=== PATIENT | female | born 1950 | race Caucasian/White ===

== ENCOUNTER 2021-11-23 22:17 | Emergency (ER) | payer MEDICARE ==
--- NOTE | 2021-11-23 22:39 | ERPHSYRPT ---
- History of Present Illness Time Seen by Provider: 11/23/21 22:38 Historian: patient, family Exam Limitations: no limitations Physician History: This is a 71-year-old white female patient of Dr. Briggs who presents with nausea and vomiting that began at 2 AM this morning. He is not able to hold any liquids down. She also felt very dizzy. She was not sure which happened first. She has had issues in the past with similar symptoms and her potassium was low. She also complains of bilateral lower quadrant abdominal pain. She is unsure if this is secondary to the multiple times she has vomited. She has had diarrhea as well. She does not have severe abdominal pain. She has no chest pain. She has had no fevers. She has no shortness of breath. No other ind ividuals in the family or friends have similar symptoms. She has no known exposures to individuals with diagnosis of flus. Timing/Duration: today Activities at Onset: none Abdominal Pain Onset Location: RLQ, LLQ Pain Radiation: no radiation Severity of Pain-Max: mild Severity of Pain-Current: mild Modifying Factors: Improves With: vomiting Associated Symptoms: diarrhea, loss of appetite, nausea, vomiting Previous symptoms: same symptoms as today (In the distant past related to a low potassium) Allergies/Adverse Reactions: codeine Allergy (Mild, Verified 11/23/21 22:32) Nausea and Vomiting Home Medications: Metoprolol Tartrate 25 mg [Lopressor 25MG Tab] 50 mg PO DAILY 04/16/12 [History] Levothyroxine Sodium [Levothyroxine] 50 mcg PO 11/23/21 [History] Hx Tetanus, Diphtheria Vaccination/Date Given: No Hx Influenza Vaccination/Date Given: Yes (2011) Hx Pneumococcal Vaccination/Date Given: No Travel Risk - International Travel Have you traveled outside of the country in past 3 weeks: No - Coronavirus Screening Are you exhibiting any of the following symptoms?: Yes Symptoms: Vomiting/Diarrhea Close contact with a COVID-19 positive Pt in past 14-21 Days: No - Review of Systems Constitutional: Weakness Eyes: No Symptoms Ears, Nose, & Throat: No Symptoms Respiratory: No Symptoms Cardiac: No Symptoms Abdominal/Gastrointestinal: Abdominal Pain, Nausea, Vomiting, Diarrhea Genitourinary Symptoms: No Symptoms Musculoskeletal: No Symptoms Neurological: Dizziness Psychological: No Symptoms Endocrine: No Symptoms Hematologic/Lymphatic: No Symptoms Immunological/Allergic: No Symptoms All Other Systems: Reviewed and Negative - Past Medical History Pertinent Past Medical History: Yes Neurological History: TIA ENT History: No Pertinent History Cardiac History: Hypertension Respiratory History: No Pertinent History Endocrine Medical History: No Pertinent History Musculoskeletal History: Arthritis GI Medical History: Gallbladder Disease History: No Pertinent History Psycho-Social History: No Pertinent History Female Reproductive Disorders: Fibroids Other Medical History: fracture of right arm over 1 year ago - Past Surgical History Past Surgical History: Yes Neuro Surgical History: No Pertinent History Cardiac: No Pertinent History Respiratory: No Pertinent History Gastrointestinal: Cholecystectomy Genitourinary: No Pertinent History Musculoskeletal: Orthopedic Surgery Female Surgical History: Hysterectomy, Tubal Ligation Other Surgical History: blayne heel fx, cyst removed from wrist, shoulder fx - Social History Smoking Status: Never smoker Exposure to second hand smoke: No Drug Use: none Patient Lives Alone: Yes - Nursing Vital Signs Nursing Vital Signs: Initial Vital Signs Temperature 97.4 F 11/23/21 22:34 Pulse Rate 61 11/23/21 22:34 Respiratory Rate 18 11/23/21 22:34 Blood Pressure 157/61 11/23/21 22:34 O2 Sat by Pulse Oximetry 98 11/23/21 22:34 Pain Scale Pain Intensity 3 - Physical Exam General Appearance: no apparent distress, alert, anxiety, thin Eye Exam: PERRL/EOMI, eyes nml inspection Ears, Nose, Throat Exam: normal ENT inspection, dry mucous membranes Neck Exam: normal inspection, non-tender, supple, full range of motion Respiratory Exam: normal breath sounds, lungs clear, airway intact, No chest tenderness, No respiratory distress Cardiovascular Exam: regular rate/rhythm, normal heart sounds, normal peripheral pulses Gastrointestinal/Abdomen Exam: soft, normal bowel sounds, No tenderness Pelvic Exam: not done Rectal Exam: not done Back Exam: normal inspection, normal range of motion, No CVA tenderness, No vertebral tenderness Extremity Exam: normal inspection, normal range of motion, pelvis stable Neurologic Exam: alert, oriented x 3, cooperative, basin operator II-XII nml as tested, normal mood/affect, nml cerebellar function, nml station & gait, sensation nml Skin Exam: normal color, warm, dry Lymphatic Exam: No adenopathy SpO2 Interpretation: normal O2 Delivery: Room Air - Course Nursing assessment & vital signs reviewed: Yes Ordered Tests: Active Orders 24 hr Category Date Time Status IV Insertion STAT Care 11/23/21 22:37 Active ABDOMEN AND PELVIS W/0 CONTRAS [CT] Stat Exams 11/23/21 22:37 Taken AMYLASE Stat Lab 11/23/21 23:01 Completed CBC W DIFF Stat Lab 11/23/21 23:01 Completed CMP Stat Lab 11/23/21 23:01 Completed CULTURE,URINE Stat Lab 11/24/21 01:16 Received LIPASE Stat Lab 11/23/21 23:01 Completed UA W/RFX CULTURE Stat Lab 11/24/21 01:16 Completed Medication Summary Generic Name Dose Route Start Last Admin Trade Name Freq PRN Reason Stop Dose Admin Sodium Chloride 1,000 mls @ 999 mls/hr 11/24/21 01:31 Sodium Chloride 0.9% 1000 Ml IV 11/24/21 02:31 .Q1H1M STA Discontinued Medications Generic Name Dose Route Start Last Admin Trade Name Freq PRN Reason Stop Dose Admin Hydromorphone HCl 1 mg 11/23/21 22:37 11/23/21 23:08 Hydromorphone 1 Mg/1ml Inj 1 Mg/Ml Syringe IV 11/23/21 22:38 Not Given STAT ONE Sodium Chloride 1,000 mls @ 999 mls/hr 11/23/21 22:37 11/24/21 00:28 Sodium Chloride 0.9% 1000 Ml IV 11/23/21 23:37 Infused .Q1H1M STA Infusion Sodium Chloride Confirm 11/23/21 22:51 Sodium Chloride 0.9% 1000 Ml Administered 11/23/21 22:52 Dose 1,000 mls @ ud .ROUTE .STK-MED ONE Ondansetron HCl 4 mg 11/23/21 22:37 11/23/21 22:52 Ondansetron Hcl 4 Mg/2 Ml Vial IV 11/23/21 22:38 4 mg STAT ONE Administration Ondansetron HCl Confirm 11/23/21 22:51 Ondansetron Hcl 4 Mg/2 Ml Vial Administered 11/23/21 22:52 Dose 4 mg .ROUTE .STK-MED ONE Prochlorperazine Edisylate 5 mg 11/24/21 00:27 11/24/21 00:59 Prochlorperazine Edisylate 10 Mg/2 Ml Vial IV 11/24/21 00:28 5 mg STAT ONE Administration Prochlorperazine Edisylate Confirm 11/24/21 00:57 Prochlorperazine Edisylate 10 Mg/2 Ml Vial Administered 11/24/21 00:58 Dose 10 mg .ROUTE .STK-MED ONE Lab/Rad Data: Laboratory Result Diagrams 11/23/21 23:01 11/23/21 23:01 Laboratory Results 11/24/21 11/23/21 11/23/21 Range/Units 01:16 23:01 23:01 WBC 9.4 (4.0-10.5) x10^3/uL RBC 4.23 (4.1-5.4) x10^6/uL Hgb 11.9 L (12.0-16.0) g/dL Hct 36.2 (35-47) % MCV 85.6 (78-100) fL MCH 28.1 (26-32) pg MCHC 32.9 (32-36) g/dL RDW 12.8 (11.5-14.0) % Plt Count 241 (150-450) x10^3/uL MPV 10.4 (7.5-11.0) fL Gran % 81.9 H (36.0-66.0) % Immature Gran % (Auto) 0.4 (0.00-0.4) % Nucleat RBC Rel Count 0.0 (0.00-0.1) % Eos # (Auto) 0.01 (0-0.5) x10^3/uL Immature Gran # (Auto) 0.04 H (0.00-0.03) x10^3u/L Absolute Lymphs (auto) 1.07 (1.0-4.6) x10^3/uL Absolute Monos (auto) 0.56 (0.0-1.3) x10^3/uL Absolute Nucleated RBC 0.00 (0.00-0.01) x10^3u/L Lymphocytes % 11.4 L (24.0-44.0) % Monocytes % 6.0 (0.0-12.0) % Eosinophils % 0.1 (0.00-5.0) % Basophils % 0.2 (0.0-0.4) % Absolute Granulocytes 7.70 H (1.4-6.9) x10^3/uL Basophils # 0.02 (0-0.4) x10^3/uL Sodium 139 (137-145) mmol/L Potassium 3.6 (3.5-5.1) mmol/L Chloride 110 H (98-107) mmol/L Carbon Dioxide 18 L (22-30) mmol/L Anion Gap 14.8 (5-15) MEQ/L BUN 11 (7-17) mg/dL Creatinine 0.65 (0.52-1.04) mg/dL Estimated GFR > 60.0 ML/MIN Glucose 143 H (74-106) mg/dL Calcium 9.5 (8.4-10.2) mg/dL Total Bilirubin 0.80 (0.2-1.3) mg/dL AST 30 (14-36) U/L ALT 22 (0-35) U/L Alkaline Phosphatase 93 (38-126) U/L Serum Total Protein 8.3 H (6.3-8.2) g/dL Albumin 4.5 (3.5-5.0) g/dL Amylase 69 (30-110) U/L Lipase 28 (23-300) U/L Urinalys Dipstick Clnc MAIN LAB Urine Color YELLOW (YELLOW) Urine Appearance CLEAR (CLEAR) Urine pH 6.0 (5-6) Ur Specific [place] 1.025 (1.005-1.025) POC Urine Protein Conf NEGATIVE (Negative) Urine Ketones LARGE-80 (NEGATIVE) Urine Nitrite NEGATIVE (NEGATIVE) Urine Bilirubin SMALL (NEGATIVE) Urine Urobilinogen 0.2 (0-1) mg/dL Urine Leukocytes NEGATIVE (NEGATIVE) Urine WBC (Auto) 3-5 (0-5) /HPF Urine RBC (Auto) 3-5 (0-2) /HPF U Epithel Cells (Auto) RARE (FEW) /HPF Urine Bacteria (Auto) FEW (NEGATIVE) /HPF Urine RBC NEGATIVE (0-5) Srinivas/ul Urine Mucus (Auto) MANY (NEGATIVE) /HPF Ur Culture Indicated? YES Urine Glucose NEGATIVE (NEGATIVE) mg/dL - Progress Progress: improved, re-examined Progress Note: 11/24/21 00:25 CAT scan of the abdomen pelvis without contrast shows no acute intra-abdominal or intrapelvic abnormality. Counseled pt/family regarding: lab results, diagnosis, need for follow-up, rad results - Departure Departure Disposition: Home Clinical Impression: Dizziness, Vomiting, Dehydration Condition: Stable Critical Care Time: No Referrals: JR BRIGGS MD [Primary Care Provider] - Follow up/PCP as directed Additional Instructions: Drink plenty of clear liquids prior to advancing diet. Take your medication as prescribed. Follow-up with your primary care physician tomorrow to make arrangements for further evaluation and management Prescriptions: Meclizine HCl 25 mg [Antivert 25 mg] 25 mg PO Q8H PRN #10 tablet PRN Reason: Dizziness
[2021-11-23] MEDS ORDERED: Sodium Chloride 0.9% 1000 ML 1,000 ML ONE (22:51)
[2021-11-23] MEDS ORDERED: Zofran 4 MG/2 ML VIAL ONE (22:51)
[2021-11-23] MEDS: Sodium Chloride 0.9% 1000 ML 1,000 ML IV STA (22:52)
[2021-11-23] MEDS: Zofran 4 MG/2 ML VIAL IV ONE (22:52)
[2021-11-23 23:04] LABS: Basophil (Absolute #) 0.02 x10^3/uL (0-0.4); Eosinophil % 0.1 % (0.00-5.0); Eosinophil (Absolute #) 0.01 x10^3/uL (0-0.5); Hematocrit 36.2 % (35-47); Hemoglobin 11.9 g/dL (12.0-16.0); Lymphocyte (Absolute #) 1.07 x10^3/uL (1.0-4.6); Lymphocytes % 11.4 % (24.0-44.0); Mean Cell Volume 85.6 fL (78-100); Mean Corpuscular Hemoglobin 28.1 pg (26-32); Mean Corpuscular Hgb Concent. 32.9 g/dL (32-36); Mean Platelet Volume 10.4 fL (7.5-11.0); Monocyte (Absolute #) 0.56 x10^3/uL (0.0-1.3); Neutrophil % 81.9 % (36.0-66.0); Platelet Count 241 x10^3/uL (150-450); Red Blood Count 4.23 x10^6/uL (4.1-5.4); Red Cell Distribution Width 12.8 % (11.5-14.0); White Blood Count 9.4 x10^3/uL (4.0-10.5)
[2021-11-23] MEDS: Hydromorphone 1 mg/ml Injection IV ONE (23:08)
[2021-11-23 23:14] LABS: ALBUMIN 4.5 g/dL (3.5-5.0); ALKALINE PHOSPHATASE 93 U/L (38-126); AMYLASE 69 U/L (30-110); ANION GAP 14.8 MEQ/L (5-15); BLOOD UREA NITROGEN 11 mg/dL (7-17); CHLORIDE 110 mmol/L (98-107); Calcium 9.5 mg/dL (8.4-10.2); Carbon Dioxide 18 mmol/L (22-30); Creatinine 1 0.65 mg/dL (0.52-1.04); EST GLOMERULAR FILTRATION RATE > 60.0 ML/MIN; Glucose 143 mg/dL (74-106); LIPASE 28 U/L (23-300); Potassium 3.6 mmol/L (3.5-5.1); SGOT/AST 30 U/L (14-36); SGPT/ALT 22 U/L (0-35); SODIUM 139 mmol/L (137-145); Total Protein 8.3 g/dL (6.3-8.2)
[2021-11-24] MEDS ORDERED: Compazine 10 MG/2 ML ONE (00:57)
[2021-11-24] MEDS: Compazine 10 MG/2 ML IV ONE (00:59)
[2021-11-24 01:16] VITALS: O2SAT 95
[2021-11-24 01:20] LABS: Appearance CLEAR (CLEAR); Bilirubin SMALL (NEGATIVE); Dipstick done @ ? MAIN LAB; Glucose NEGATIVE (NEGATIVE); Ketones LARGE-80 (NEGATIVE); Nitrite NEGATIVE (NEGATIVE); Protein,Urine Dip NEGATIVE (Negative); RBC NEGATIVE Ery/ul (0-5); Specific Gravity 1.025 (1.005-1.025); Urobilinogen 0.2 mg/dL (0-1)
[2021-11-24 01:21] LABS: Bacteria FEW /HPF (NEGATIVE); Epithelial Cells RARE /HPF (FEW); Mucus MANY /HPF (NEGATIVE); Urine Cultured Indicated? YES
[2021-11-24] MEDS ORDERED: Sodium Chloride 0.9% 1000 ML 1,000 ML ONE (01:44)
[2021-11-24] MEDS: Sodium Chloride 0.9% 1000 ML 1,000 ML IV STA (01:46)
[2021-11-24] MEDS ORDERED: Zofran 4 MG/2 ML VIAL ONE (03:07)
[2021-11-24] MEDS ORDERED: ANTIVERT 25 MG ONE (03:07)
[2021-11-24] MEDS: Zofran 4 MG/2 ML VIAL IV ONE (03:08)
[2021-11-24] MEDS: ANTIVERT 25 MG PO ONE (03:09)
[2021-11-24 03:37] VITALS: BP 139/58; PULSE 72
--- NOTE | 2021-11-24 09:08 | XRAY ---
Indication: Abdomen pain, nausea, vomiting, and diarrhea. Multiple contiguous axial images obtained through the abdomen and pelvis without contrast. Comparison: September 28, 2014 Lung bases again demonstrate mild subsegmental atelectasis/scarring and tiny benign left costophrenic angle nodule. No infiltrate or effusion. Heart not enlarged. Noncontrasted stomach and bowel loops nonobstructed again with normal appendix. Again previous cholecystectomy. Remaining liver, pancreas, spleen, adrenal glands, kidneys, ureters, bladder, and aorta are unremarkable for noncontrast exam. Osseous structures again demonstrates mild osteopenia, mild multilevel lumbar degenerative changes, and remote L3 fracture. Impression: 1. Stable benign left costophrenic angle micro-nodule and chronic bony findings. 2. Remaining CT abdomen/pelvis without contrast exam is again negative. Comment: Preliminary interpretation made by [facility]. No critical discrepancy.
== END 2021-11-24 03:37 | disposition home or self-care (01) ==
LOC: ED 22:17
DX: R42 Dizziness and giddiness (principal); R11.2 Nausea with vomiting, unspecified; E86.0 Dehydration; R10.32 Left lower quadrant pain; R10.31 Right lower quadrant pain; R19.7 Diarrhea, unspecified; R53.1 Weakness; I10 Essential (primary) hypertension; Z79.899 Other long term (current) drug therapy
CPT/HCPCS: 36000; 36415; 74176; 80053; 81015; 82150; 83690; 85025; 87086; 96360; 96374; 96375; 99284; J2405; A9270-GY